=== PATIENT | male | born 1945 | race Caucasian/White ===

== ENCOUNTER 2016-12-20 10:04 | Observation (INO) | payer OTHER ==
[~2016-12-20] VITALS: Ht 172.7 cm; Wt 90.3 kg
[~2016-12-20 10:04] MED LIST: CALCARB 600 W-1 EACH PO; COUMADIN5 MG PO; COUMADIN7.5 MG PO; LISINOPRIL10 MG PO; LORAZEPAM0.5 MG PO; LOSARTAN POTASS50 MG PO; LUPRON DEPOT22.5 MG IM; MACRODANTIN50 M1 PO; MAGIC MOUTHWASH1 ML MM; OMEPRAZOLE20 M2 PO; VICODIN 5-3001 EACH PO; ZOLPIDEM TARTRA10 MG PO
[2016-12-20 11:09] LABS: MCH 32.8 PG (29.0-34.0); MCHC 35.3 G/DL (30.0-36.0); MEAN PLAT.VOLUME 11.2 uM^3 (9.0-12.4); PLATELET COUNT 104 K/uL (156-360); RBC DIS.WIDTH-CV 13.1 % (11.8-14.6); RBC DIS.WIDTH-SD 44.3 % (39-53); RED BLOOD COUNT 3.87 M/uL (4.00-5.50); WHITE BLOOD COUNT 4.3 K/uL (4.1-10.2)
[2016-12-20 11:20] LABS: CHLORIDE 108 mEq/L (99-109); POTASSIUM 4.5 mEq/L (3.7-5.4); SODIUM 140 mEq/L (136-147)
[2016-12-20 11:22] LABS: GLUCOSE 109 mg/dL (70-99)
[2016-12-20 11:23] LABS: ANION GAP 9 MEQ/L (2-14)
[2016-12-20 11:28] LABS: GFR ESTIMATE (CALCULATED) > 59 mL/min/; UREA NITROGEN (BUN) 24 mg/dL (9-23)
[2016-12-20 11:45] LABS: TROP-I INTERPRETATION NEGATIVE; TROPONIN-I < 0.01 ng/mL (0.0-0.30)
[2016-12-20] MEDS ORDERED: COUMADIN6 MG PO (11:56)
[2016-12-20] MEDS ORDERED: PROLIA60 MG/1 ML SC (11:59)
[2016-12-20] MEDS ORDERED: LO-DOSE ASPIRIN81 M2 PO (11:59)
[2016-12-20] MEDS ORDERED: CALCIUM 600 +1 EAC4 PO (12:27)
[2016-12-20 13:09] LABS: INTER. NORMALIZED RATIO 1.3; PROTHROMBIN TIME 12.8 (9.2-11.2); PTT 28.8 (25-32)
[2016-12-20 16:28] LABS: ADD MIUA? NO; BILIRUBIN NEGATIVE; BLOOD NEGATIVE; COLOR YELLOW ((YELLOW)); GLUCOSE (STRIP) NEGATIVE; KETONES NEGATIVE; LEUKOCYTES NEGATIVE; NITRITE NEGATIVE; PROTEIN (STRIP) NEGATIVE; SPECIFIC GRAVITY 1.021 (1.000-1.030); UCUL ADDED? NO; UROBILINOGEN 0.2 MG/DL (0.2-1.0)
[2016-12-20 17:17] VITALS: BP 205/90
[2016-12-20 17:46] VITALS: BP 205/90
[2016-12-20 20:00] VITALS: BP 204/92
[2016-12-21] VITALS: BP 140/60
[2016-12-21 03:39] VITALS: BP 130/68
[2016-12-21 06:42] LABS: EOSINOPHIL (%) 3.1 % (0-5); EOSINOPHIL COUNT 0.1 K/uL (0-0.3); HEMATOCRIT 33.5 % (38.0-50.0); IMMATURE GRANULOCYTE (%) 0.5 % (0.0-0.7); INSTRUMENT ABS NEUTROPHIL CT 2.4 K/uL; LYMPHOCYTE COUNT 1.1 K/uL (1.0-2.8); MCH 33.9 PG (29.0-34.0); MCHC 36.4 G/DL (30.0-36.0); MCV 93.1 FL (86-99); MEAN PLAT.VOLUME 11.2 uM^3 (9.0-12.4); MONOCYTE (%) 9.9 % (3-12); MONOCYTE COUNT 0.4 K/uL (0-0.8); NEUTROPHIL (%) 58.9 % (45-76); NEUTROPHIL COUNT 2.4 K/uL (1.8-6.4); PLATELET COUNT 98 K/uL (156-360); RBC DIS.WIDTH-CV 12.7 % (11.8-14.6); RBC DIS.WIDTH-SD 43.4 % (39-53); WHITE BLOOD COUNT 4.1 K/uL (4.1-10.2)
[2016-12-21 06:55] LABS: Estimated Average Glucose 114 mg/dL (70-123); HEMOGLOBIN A1c (GLYCOHEMOGLOB) 5.6 % HGB (Below 5.7)
[2016-12-21 06:56] LABS: ANION GAP 8 MEQ/L (2-14); CHLORIDE 105 MEQ/L (99-109); INTER. NORMALIZED RATIO 1.2; POTASSIUM 4.7 MEQ/L (3.7-5.4); PROTHROMBIN TIME 12.7 (9.2-11.2); PTT 28.6 (25-32); SAMPLE HEMOLYSIS CHECK 0; SAMPLE ICTERIC CHECK 0; SAMPLE LIPEMIA CHECK 0; SODIUM 139 MEQ/L (136-147)
[2016-12-21 07:01] LABS: GFR ESTIMATE (CALCULATED) > 59 mL/min/; GLUCOSE 92 mg/dL (70-99); HDL CHOLESTEROL 60 MG/DL (Desirable>=40); LDL CHOLESTEROL 110 mg/dL (Desirable<100); NON-HDL CHOLESTEROL 129 mg/dL (Desirable<160); TOTAL CHOLESTEROL 189 mg/dL (Desirable<200); TRIGLYCERIDES 96 MG/DL (Normal: <150); UREA NITROGEN (BUN) 24 mg/dL (9-23)
[2016-12-21 09:25] VITALS: BP 195/83
[2016-12-21 10:24] VITALS: BP 162/81
[2016-12-21] MEDS ORDERED: LOVENOX100 MG/1 M SC (10:53)
[2016-12-21] MEDS ORDERED: LOPRESSOR25 MG PO (10:53)
[2016-12-21] MEDS ORDERED: LIPITOR40 MG PO (10:53)
== END 2016-12-21 12:23 | disposition home or self-care (01) ==
LOC: EME 10:04 → EDOF 13:28 → 5SOUTH 13:28
PROVIDERS: Internal Medicine; Nurse Practitioner Family
DX: G45.9 Transient cerebral ischemic attack, unspecified (principal); D68.2 Hereditary deficiency of other clotting factors; R20.0 Anesthesia of skin; R20.2 Paresthesia of skin; I10 Essential (primary) hypertension; R42 Dizziness and giddiness; K21.9 Gastro-esophageal reflux disease without esophagitis; Z86.73 Personal history of transient ischemic attack (TIA), and cerebral infarction without residual deficits; Z86.718 Personal history of other venous thrombosis and embolism; Z86.711 Personal history of pulmonary embolism; Z79.01 Long term (current) use of anticoagulants; Z85.46 Personal history of malignant neoplasm of prostate
CPT/HCPCS: 70450; 70551; 71020; 80048; 80048 91; 80061; 81003; 83036; 84484; 85025; 85027; 85610; 85730; 93005; 93880; G0378; J1650; J2060; J7030

== ENCOUNTER 2016-12-24 08:40 | Emergency (ER) | payer OTHER ==
[~2016-12-24] VITALS: Ht 172.7 cm; Wt 91.1 kg
[~2016-12-24 08:40] MED LIST changes: +CALCIUM 600 +1 EAC4 PO; +COUMADIN6 MG PO; +LIPITOR40 MG PO; +LO-DOSE ASPIRIN81 M2 PO; +LOPRESSOR25 MG PO; +LOVENOX100 MG/1 M SC; +PROLIA60 MG/1 ML SC
[2016-12-24 09:21] LABS: EOSINOPHIL COUNT 0.1 K/uL (0-0.3); HEMATOCRIT 39.3 % (38.0-50.0); IMMATURE GRANULOCYTE (%) 0.3 % (0.0-0.7); INSTRUMENT ABS NEUTROPHIL CT 2.6 K/uL; LYMPHOCYTE COUNT 0.9 K/uL (1.0-2.8); MCH 32.9 PG (29.0-34.0); MCHC 35.6 G/DL (30.0-36.0); MCV 92.5 FL (86-99); MEAN PLAT.VOLUME 11.2 uM^3 (9.0-12.4); MONOCYTE (%) 8.6 % (3-12); MONOCYTE COUNT 0.3 K/uL (0-0.8); NEUTROPHIL (%) 66.5 % (45-76); NEUTROPHIL COUNT 2.6 K/uL (1.8-6.4); PLATELET COUNT 121 K/uL (156-360); RBC DIS.WIDTH-CV 12.8 % (11.8-14.6); RBC DIS.WIDTH-SD 43.2 % (39-53); RED BLOOD COUNT 4.25 M/uL (4.00-5.50); WHITE BLOOD COUNT 3.9 K/uL (4.1-10.2)
[2016-12-24 09:33] LABS: CHLORIDE 105 mEq/L (99-109); POTASSIUM 4.3 mEq/L (3.7-5.4); SODIUM 139 mEq/L (136-147)
[2016-12-24 09:34] LABS: GLUCOSE 122 mg/dL (70-99)
[2016-12-24 09:36] LABS: ANION GAP 10 MEQ/L (2-14)
[2016-12-24 09:38] LABS: GFR ESTIMATE (CALCULATED) 49 mL/min/
[2016-12-24 09:39] LABS: UREA NITROGEN (BUN) 25 mg/dL (9-23)
[2016-12-24 09:42] LABS: TROP-I INTERPRETATION NEGATIVE; TROPONIN-I < 0.01 ng/mL (0.0-0.30)
[2016-12-24 11:52] LABS: INTER. NORMALIZED RATIO 1.8; PROTHROMBIN TIME 18.9 (9.2-11.2)
[2016-12-24] MEDS ORDERED: METOPROLOL TART25 MG PO (12:24)
[2016-12-24 12:56] VITALS: BP 145/71
[2016-12-24 14:11] LABS: PSA FREE < 0.01 ng/mL
== END 2016-12-24 12:57 | disposition home or self-care (01) ==
LOC: EME 08:40
PROVIDERS: Emergency Medicine
DX: I95.1 Orthostatic hypotension (principal); R55 Syncope and collapse; R20.2 Paresthesia of skin; I10 Essential (primary) hypertension; Z86.73 Personal history of transient ischemic attack (TIA), and cerebral infarction without residual deficits
CPT/HCPCS: 70450; 80048; 84154 GA; 84484; 85025; 85610; 85730; 93005; 99281; 99285; G0103; J7030

== ENCOUNTER 2017-10-27 10:32 | Emergency (ER) | payer OTHER ==
[~2017-10-27] VITALS: Ht 170.2 cm; Wt 91.1 kg
[~2017-10-27 10:32] MED LIST changes: +COLACE100 MG PO; +HYDROCODON-ACE1 EAC7 PO; +LOVENOX80 MG/0.8 SC; +METOPROLOL TART25 MG PO; +TOPROL XL25 MG PO; +ZOFRAN4 MG PO
[2017-10-27 11:57] VITALS: BP 147/67
== END 2017-10-27 11:58 | disposition home or self-care (01) ==
LOC: EME 10:32
DX: T44.7X1A Poisoning by beta-adrenoreceptor antagonists, accidental (unintentional), initial encounter (principal); K21.9 Gastro-esophageal reflux disease without esophagitis; Z87.891 Personal history of nicotine dependence; Z86.711 Personal history of pulmonary embolism; Z86.718 Personal history of other venous thrombosis and embolism; Z85.46 Personal history of malignant neoplasm of prostate
CPT/HCPCS: 93005; 99281; 99284